=== PATIENT | female | born 1975 | race Two or more races ===

== ENCOUNTER 2018-08-17 11:11 | Outpatient (CLI) | payer OTHER | END 2018-08-17 11:27 | disposition home or self-care (01) | LOC: NUCLEAR 11:11 | DX: C50.212 Malignant neoplasm of upper-inner quadrant of left female breast (principal); I80.12 Phlebitis and thrombophlebitis of left femoral vein ==

== ENCOUNTER 2019-03-20 16:24 | Emergency (ER) | payer OTHER ==
[~2019-03-20] VITALS: Ht 160 cm; Wt 77.1 kg
[2019-03-20] MEDS ORDERED: CELEBREX200MG PO (17:00)
[2019-03-20] MEDS ORDERED: VERZENIO100 MG PO (17:00)
[2019-03-20] MEDS ORDERED: VITAMIN D2000 UNI1 PO (17:01)
[2019-03-20] MEDS ORDERED: FASLODEX250 MG/5 M IM (17:01)
[2019-03-20] MEDS ORDERED: XGEVA120 MG/1.7 SQ (17:02)
== END 2019-03-20 17:55 | disposition home or self-care (01) ==
LOC: ER 16:24
DX: S90.02XA Contusion of left ankle, initial encounter (principal); W18.39XA Other fall on same level, initial encounter; Y93.89 Activity, other specified; Y92.218 Other school as the place of occurrence of the external cause; Y99.8 Other external cause status